=== PATIENT | male | born 1945 | race Caucasian/White ===

== ENCOUNTER 2017-05-15 14:30 | Day surgery (SDC) | payer OTHER ==
[~2017-05-15] VITALS: Ht 177.8 cm; Wt 85.4 kg
[2017-05-15] MEDS ORDERED: POVIDONE IODINE 5% (ANTISEPSIS KIT) 4 APPLICATIONS EACH NARE PRN (15:00)
[2017-05-15] MEDS ORDERED: CHLORHEXIDINE GLUCONATE 2 % 1 PACK (2 CLOTHS) TOPICAL PRN (15:00)
[2017-05-15] MEDS ORDERED: SODIUM CHLORID 0.9% 500 ML IV PRN (15:00)
[2017-05-15] MEDS ORDERED: METOPROLOL TARTRATE 25 MG TAB PO PRN (15:00)
[2017-05-15] MEDS ORDERED: LORazepam 1 MG TAB SL SCH (15:00)
[2017-05-15] MEDS ORDERED: SODIUM CHLORID 0.9% 500 ML INJ 500 ML IV SCH (15:00)
[2017-05-15] MEDS ORDERED: LACTATED RINGER'S 1000 ML IV PRN (15:00)
[2017-05-15] MEDS ORDERED: INSULIN HUMAN REGULAR 1,000 UNITS/10 ML VIAL SQ PRN (15:00)
[2017-05-15] MEDS ORDERED: APIX5TAB PO (15:11)
[2017-05-15] MEDS ORDERED: MULT-65 PO (15:11)
[2017-05-15] MEDS ORDERED: MELA5 PO (15:11)
[2017-05-15] MEDS ORDERED: VENTAER INH (15:11)
[2017-05-15] MEDS ORDERED: UMEC1AER INH (15:11)
[2017-05-15] MEDS ORDERED: HEPARIN-D5W 25,000 U/250 ML 250 ML ONE (17:12)
[2017-05-15] MEDS ORDERED: PROTAMINE SULFATE 50 MG/5 ML VIAL ONE (17:13)
[2017-05-15] MEDS ORDERED: LEVOFLOXACIN 500 MG PREMIX INJ 100 ML IV ONE (17:13)
[2017-05-15] MEDS ORDERED: FUROSEMIDE 40 MG/4 ML VIAL ONE (17:13)
[2017-05-15] MEDS ORDERED: HEPARIN SODIUM - IV 10,000 UNITS/10 ML VIAL ONE (17:14)
[2017-05-15 17:40] LABS: AUTOMATED NEUTROPHIL # 5.4 TH/MM3 (1.8-7.7); BASOPHIL # 0.1 TH/MM3 (0-0.2); BASOPHIL % 0.7 % (0.0-2.0); EOSINOPHIL # 0.4 TH/MM3 (0-0.4); EOSINOPHIL % 4.9 % (0.0-4.0); HEMATOCRIT 41.2 % (39.0-51.0); HEMOGLOBIN 14.5 GM/DL (13.0-17.0); LYMPH % 23.1 % (9.0-44.0); MEAN CELL VOLUME 95.2 FL (80.0-100.0); MEAN CORPUSCULAR HEMOGLOBIN 33.6 PG (27.0-34.0); MEAN CORPUSCULAR HGB CONC 35.2 % (32.0-36.0); MEAN PLATELET VOLUME 7.8 FL (7.0-11.0); MONO % 9.6 % (0.0-8.0); MONOCYTE # 0.8 TH/MM3 (0-0.9); NEUT % 61.7 % (16.0-70.0); PLATELET COUNT 284 TH/MM3 (150-450); RED BLOOD COUNT 4.32 MIL/MM3 (4.50-5.90); RED CELL DISTRIBUTION WIDTH 15.1 % (11.6-17.2); WHITE BLOOD COUNT 8.8 TH/MM3 (4.0-11.0)
[2017-05-15 17:50] LABS: PROTHROMBIN TIME - PATIENT 10.2 SEC (9.8-11.6)
[2017-05-15 18:02] LABS: BICARBONATE 25.7 MEQ/L (21.0-32.0); CALCIUM 8.6 MG/DL (8.5-10.1); CREATININE 1.01 MG/DL (0.60-1.30)
[2017-05-15] MEDS ORDERED: oxyCODONE/ACETAMINOPHEN 5 MG/325 MG TAB PO PRN ×2 (20:30)
[2017-05-15] MEDS ORDERED: BACITRACIN OINT 0.9 GM PKT TOP ONE (20:30)
[2017-05-15] MEDS ORDERED: ATROPINE SULFATE 1 MG/ML VIAL IV PUSH PRN (20:30)
[2017-05-15] MEDS ORDERED: METOCLOPRAMIDE HCL 10 MG/2 ML VIAL IV PUSH PRN (20:30)
[2017-05-15] MEDS ORDERED: SODIUM CHLOR 0.9% 250 ML INJ 250 ML IV PRN (20:30)
[2017-05-15] MEDS ORDERED: LORazepam 2 MG/ML VIAL IV PUSH PRN (20:30)
[2017-05-15] MEDS ORDERED: LIDOCAINE HCL 1% 20 ML VIAL INFIL PRN (20:30)
[2017-05-15] MEDS ORDERED: ONDANSETRON HCL 4 MG/2 ML VIAL IV PUSH PRN (20:30)
--- NOTE | 2017-05-15 20:40 | CATHPROC ---
Patient Name: TRACI PUENTES Study #: [id number] Initial MD: Susan Estrada Date of : 1945 Study Date: 05/15/2017 Cardiac Catheterization Report 05/15/2017 8:39:53 PM Financial #: [id number] 1 of 9 Patient Name: TRACI PUENTES Study #: [id number] Initial MD: Susan Estrada Date of : 1945 Study Date: 05/15/2017 Entire Case Report Patient Information Patient Name TRACI PUENTES Date of 1945 Age 72 years Financial # [id number] Gender M AlternateID Lab Number 2 Room Number DC09 Height (in) 70.0 Height (cm) 177.8 BSA 2.03 Weight (lbs) 187.9 Weight (kg) 85.4 Patient Address/Phone Number Home Address [facility] Home Phone Number [address] [facility] [address] Study Information Study Number Admission Scheduled Start Study Start [id number] May 15 2017 2:30PM 05/15/2017 May 15 2017 5:24PM [facility] Cardiac Catheterization Admit Source Facility Department Other [facility] Repair Technician Physician and Clinical Staff Initial Susan Medellin Returns Supervisor Celia De La Vega,RT(R) TECH2 Other Anesthesia, PROGRAM DIRECTOR Recorder Aria Monterroso,RN Scrub Deric Lange,RT(R) Procedures Performed Procedure Location (Site) Vessel Name Cardioversion ICE CATHETER INSERT RA Atruim RF Ablation LT. ATRIUM LT. [facility] 05/15/2017 8:39:53 PM Financial #: [id number] 2 of 9 Patient Name: TRACI PUENTES Study #: [id number] Initial MD: Susan Estrada Date of : 1945 Study Date: 05/15/2017 Equipment Time Behavioral Sciences Department Chair Description Size Mfg Part Number Used/Scraped NEEDLE, TRANSSEPTAL NRG 98 [id number] 17:26 [facility] Used C1 *[id number] [employer]/ EP [id number] 17:26 KIT, TRANSDUCER / AFIB Used PACER *[id number] CATHETER, TACTICATH ABLAT BUNDLE 17:26 [facility] Used 65 BUNDLE *[id number]- BUNDLE 36537-OPMCER CATHETER, FR7 OPTIMA SPIRAL 17:26 [facility] FR7 *[id number]- Used BUNDLE BUNDLE [id number] 17:26 [employer] CATHETER, JSN, QUAD BUNDLE FR 5 *[id number]- Used BUNDLE [id number] 17:26 [employer] CATHETER, JSN, QUAD BUNDLE FR 5 *[id number]- Used BUNDLE 10970-IOYWBF SET, COOL POINT TUBING 17:26 [employer] *[id number]- Used BUNDLE BUNDLE SHEATH, FR8.5 STEERABLE SM 17:26 [employer] 71CM [id number] Used 71CM BUNDLE COVER, TRANSDUCER CABLE 612-113 17:26 [employer] Used ACUNAV *[id number] 17:26 CORDIS/PACER SHEATH, FR10 PLACIDO 11CM FR 10 Used *[id number] 17:26 CORDIS/PACER SHEATH, FR9 PLACIDO 11CM FR 9 [id number] Used [id number] 17:26 [employer] INDUSTRIES PACK, CCL CUSTOM * Used *[id number] 17:26 [employer] PACER ZHAO, LIMB * 2530 *[id number] Used [id number] 17:26 [employer] MEDICAL SHEATH, FR4.5 PRELUDE 11CM FR 4.5 Used [id number] 17:26 NAMIC TUBING, HIGH PRESSURE 48" 48" Used *[id number] 17:26 NAMIC TUBING, HIGH PRESSURE 48" 48" Used *[id number] 17:26 [employer] BLANKET,WARM AIR CCL * Used *[id number] 17:26 [facility] MEDICAL ELECTRODE KIT, HALLEY X SURFACE * Used *[id number] 17:26 [facility] MEDICAL SHEATH, EPS, FR6 FAST CATH FR 6 Used *[id number] 17:26 [facility] MEDICAL SHEATH, EPS, FR7 FAST CATH FR 7 [id number] Used [id number] 17:26 [facility] MEDICAL SHEATH, EPS, FR8 FAST CATH FR 8 Used *[id number] CATHETER, ACUNAV FR10 ICE [id number] 18:36 MARGARITA FR 10 Used (MARGARITA) *[id number] [facility] PAD, ELECTROSURGICAL 17:26 * [id number] *[id number] Used SURGICAL GROUNDING (BLUE) 05/15/2017 8:39:53 PM Financial #: [id number] 3 of 9 Patient Name: TRACI PUENTES Study #: [id number] Initial MD: Susan Estrada Date of : 1945 Study Date: 05/15/2017 Insurance Information Insurance Payor Private Health Insurance Third Green Party Third Green Party Number C - POS [facility] History: Allergies Allergy Reaction SPLENDA History: Risk Factors Family History of Hypertension Dyslipidemia Previous CT Previous Heart Failure Premature CAD Yes Yes Yes No No Prior Valve Prior PCI Prior CABG Surgery No No No Cerebrovascular Peripheral Artery Chronic Lung On Dialysis Diabetes Disease Disease Disease No No No No No Medication Medication Total Dose (Bolus/Oral) Medication Total Dosage/Unit 1% XYLOCAINE 40 mL HEPARIN 06655 units PROTAMINE 40 mg 05/15/2017 8:39:53 PM Financial #: [id number] 4 of 9 Patient Name: TRACI PUENTES Study #: [id number] Initial MD: Susan Estrada Date of : 1945 Study Date: 05/15/2017 Medications (Bolus/Oral) Medication Time Given Dosage/Unit Administered By Reason 1% XYLOCAINE 05/15/2017 6:26:44 PM 20 mL Susan Estrada 20 mL 1% XYLOCAINE given in lab by Susan Estrada in Left Groin via Subcutaneous. 1% XYLOCAINE 05/15/2017 6:30:05 PM 20 mL Susan Estrada 20 mL 1% XYLOCAINE given in lab by Susan Estrada in Right Groin via Subcutaneous. HEPARIN 05/15/2017 6:37:22 PM 59339 units Anesthesia, PROGRAM DIRECTOR 58632 units HEPARIN given in lab by Anesthesia, PROGRAM DIRECTOR via Peripheral IV. Ordered by Susan Estrada. HEPARIN 05/15/2017 6:52:47 PM 3000 units Anesthesia, PROGRAM DIRECTOR 3000 units HEPARIN given in lab by Anesthesia, PROGRAM DIRECTOR via Peripheral IV. Ordered by Susan Estrada. HEPARIN 05/15/2017 7:06:36 PM 2000 units Anesthesia, PROGRAM DIRECTOR 2000 units HEPARIN given in lab by Anesthesia, PROGRAM DIRECTOR via Peripheral IV. Ordered by Susan Estrada. PROTAMINE 05/15/2017 8:23:40 PM 40 mg AnesthesiaONI 40 mg PROTAMINE given in lab by ONI Ferris. Ordered by Susan Estrada. Medication (Drip) Medication Time Given Dosage/Unit Concentration/Unit Diluent (ml) Solution ISUPREL 05/15/2017 8:01:47 PM 10 mcg/min 1 mg 250 NaCl .9 10 mcg/min ISUPREL given in lab by NOI Ferris via Peripheral IV. Pump/Drip Flow = 150 ml/hr usi ng NaCl .9 with a concentration of 1 mg in 250 ml. Ordered by Susan Estrada. 05/15/2017 8:39:53 PM Financial #: [id number] 5 of 9 Patient Name: TRACI PUENTES Study #: [id number] Initial MD: Susan Estrada Date of : 1945 Study Date: 05/15/2017 Initial Case Assessment Final Case Assessment Cardiovascular HR Rhythm NIBP Chest Pain 88 SR 122/62 0 Edema Present Skin color Skin None Normal Warm Dry Circulatory - Right Pulses Dorsalis Pedis 1 Scale (0,1,2,3,4,d) Circulatory - Left Pulses Dorsalis Pedis 1 Scale (0,1,2,3,4,d) Neurological State Oriented to time-place- Alert Moves all extremities person Respiration - General Respiration Rate SpO2 (%) O2 (lpm) (B/min) 18 100 4 Chronological Log Time Study Chronological Log 17:15:00 Patient arrived via Bed. 17:15:00 Patient Name, D.O.B, / Armband Verified By R.N. 17:15:10 Verbal Stimulation=2 Physical Stimulation=2 Airway=2 Respiration=2 TOTAL=8. (0=absent, 1=li mited, 2=present) 17:15:15 Anesthesia at bedside. Assumes care of patient. SEE RECORDS FOR MEDS AD VITALS DURING PROCE DURE 17:20:00 Patient has been NPO for More than 6Hrs. 17:21:00 Skin Breakdown- NONE PER PATIENT 17:34:51 Patient Warmer Placed on the Table. 17:34:53 Disposable Defibrillator Pads Placed On Patient. 17:34:54 Saurabh Prominences Protected 17:34:55 IV Warmer Connected To Patient. 17:34:55 A # 20 IV was noted in the Antecubital (left). Grade = 0 05/15/2017 8:39:53 PM Financial #: [id number] 6 of 9 Patient Name: TRACI PUENTES Study #: [id number] Initial MD: Susan Estrada Date of : 1945 Study Date: 05/15/2017 17:35:03 A # 20 IV was noted in the Antecubital (right). Grade = 0 17:35:11 History and physical on the chart or being dictated. 17:35:14 Assessment: Initial Case 17:35:15 Table restraints applied according to hospital policy 17:35:17 Bilateral groins prepped with 2% chlorhexidine, and draped after a 3 minute waiting time. 17:35:21 MD paged 17:35:21 MD responded 17:45:00 DR. ESTRADA PRESENT AWAITING ANESTHESIA FOR INTUBATION. LABS STILL PENDING LAB CONTACTED 18:14:57 PATIENT INTUBATED KP AND ANASTHESIOLOGIST PRESENT 18:15:35 S HESHER INSERTED 14F B[place]AG[place] WITH CLEAR YELLOW RETURN Time Out. Correct patient, procedure, procedure equipment, site and side verified with physicia n present. Time 18:22:43 concurred by MD, individual staff and PROGRAM DIRECTOR. Time Out #2 - Consents verified, patient in correct position, all results are labled and displa yed, safety precautions 18:22:45 taken, antibiotics administered. Time out concurred by MD, individual staff and PROGRAM DIRECTOR in procedu re 18:23:40 Case Start 18:23:50 JAMI IN PROGRESS 18:25:15 JAMI COMPLETE 18:26:44 20 mL 1% XYLOCAINE given in lab by Susan Estrada in Left Groin via Subcutaneous. 18:27:19 Vascular access was obtained in the Fem Vein (left). 18:27:23 Vascular access was obtained in the Fem Vein (left). 18:27:24 Vascular access was obtained in the Fem Vein (left). 18:27:24 Vascular access was obtained in the Fem Art (left). 18:28:13 A SHEATH, FR4.5 PRELUDE 11CM FR 4.5 was advanced into the Fem Art (left) using the Modified Seldinger technique. 18:30:05 20 mL 1% XYLOCAINE given in lab by Susan Estrada in Right Groin via Subcutaneous. 18:30:12 Vascular access was obtained in the Fem Vein (right). 18:30:13 A SHEATH, EPS, FR8 FAST CATH FR 8 was advanced into the Fem Vein (right) using the Modified Seldinger technique. A CATHETER, JSN, QUAD BUNDLE FR 5 was advanced vis Fem Vein (left) and placed in the CS. Placem ent was visually 18:32:55 confirmed under fluoroscopy. A CATHETER, JSN, QUAD BUNDLE FR 5 was advanced vis Fem Vein (left) and placed in the HIS. Place ment was 18:33:04 visually confirmed under fluoroscopy. 18:35:30 CATHETER, ACUNAV FR10 ICE (TPACK) FR 10 Was Postioned. A SHEATH, FR8.5 STEERABLE SM 71CM BUNDLE 71CM was exchanged in the Fem Vein (right). This was n ecessary in 18:35:46 order to accomodate a larger catheter. 18:35:55 BAYLIS NEEDLE INSERTED 18:37:13 A eps was advanced to the right atrium and passed through the septal wall to the left atriu m. 18:37:16 BAYLIS REMOVED 18:37:22 17066 units HEPARIN given in lab by Anesthesia, PROGRAM DIRECTOR via Peripheral IV. Ordered by Maryellen Estrada. A CATHETER, FR7 OPTIMA SPIRAL BUNDLE FR7 was advanced vis Fem Vein (right) and placed in the LA . Placement 18:38:56 was visually confirmed under fluoroscopy. 18:39:06 MAPPING IN PROGRESS A CATHETER, TACTICATH ABLAT 65 BUNDLE was advanced vis Fem Vein (right) and placed in the LA. P lacement was 18:51:48 visually confirmed under fluoroscopy. 05/15/2017 8:39:53 PM Financial #: [id number] 7 of 9 Patient Name: TRACI PUENTES Study #: [id number] Initial MD: Susan Estrada Date of : 1945 Study Date: 05/15/2017 18:51:56 RF Ablation of the LT. ATRIUM with a CATHETER, TACTICATH ABLAT 65 BUNDLE. 18:52:06 ABLATION IN PROGRESS 18:52:41 ACT (Normal Range 90-180) = 308 18:52:47 3000 units HEPARIN given in lab by Anesthesia, PROGRAM DIRECTOR via Peripheral IV. Ordered by Maryellen Estrada. 19:00:50 Activated Clotting Time Drawn 19:06:07 ACT (Normal Range 90-180) = 335 19:06:36 2000 units HEPARIN given in lab by ONI Ferris via Peripheral IV. Ordered by Maryellen Estrada. 19:13:01 Activated Clotting Time Drawn 19:18:43 ACT (Normal Range 90-180) = 357 19:35:20 ABLATION STILL IN PROGRESS 19:42:35 Activated Clotting Time Drawn 19:48:50 ACT (Normal Range 90-180) = 351 19:59:53 ECG rhythm of AF noted. Patient cardioverted at 200 joules. Success SYNC 10 mcg/min ISUPREL given in lab by ONI Ferris via Peripheral IV. Pump/Drip Flow = 150 ml /hr using NaCl .9 20:01:47 with a concentration of 1 mg in 250 ml. Ordered by Susan Estrada. 20:12:52 DC ISUPREL A SHEATH, FR9 PLACIDO 11CM FR 9 was exchanged in the Fem Vein (right). This was necessary in or dasia to minimize 20:13:58 site leakage. 20:14:16 Catheter(s) removed without difficulty Assessment: Final Case, HR=88 BPM, Rhythm=SR, PGUX=484/62 mmhg, Chest Pain=0, Edema=None, Kulm r=Normal, Skin = Warm, Dry Right Pulses: Pelon Ped=1 20:14:19 Left Pulses: Pelon Ped=1 Neurological: State=Alert, Ox3, TONEY Respiration: Resp=18 B/min, VwA0=197 %, O2=4 lpm 20:15:02 Case End 20:23:19 Case complication noted. 20:23:20 Cine recording checked. 20:23:21 Bedside Report will be given. 20:23:26 PACU called. Spoke to APPLE 20:23:40 40 mg PROTAMINE given in lab by AnesthesiaONI. Ordered by Susan Estrada. 20:39:31 ACT (Normal Range 90-180) = 143 20:39:47 Patient moved to stretcher End Study - Contrast Media Used In Study Contrast Total Opened (mL) Total Used (mL) Total Wasted (mL) Unspecified 0 0 0 05/15/2017 8:39:53 PM Financial #: [id number] Patient Name: TRACI PUENTES Study #: [id number] Initial MD: Susan Estrada Date of : 1945 Study Date: 05/15/2017 End Study - Radiation Exposure Fluoro Time (minutes) 2.5 End Study - Patient Disposition Complications Transferred To Interventional Outcome No Telemetry Bed successful 05/15/2017 8:39:53 PM Financial #: [id number]
[2017-05-15] MEDS ORDERED: DO NOT ADM ANY ANTICOAGULANT DRUGS PRN (20:45)
[2017-05-15] MEDS ORDERED: MELATONIN 5 MG TAB PO SCH (21:00)
[2017-05-15] MEDS: APIXABAN 5 MG TABLET PO SCH (21:00)
[2017-05-15] MEDS ORDERED: PILL SPLITTER OTHER PRN (21:00)
[2017-05-16 05:59] LABS: INTERNATIONAL NORMALIZED RATIO 1.1 RATIO; PROTHROMBIN TIME - PATIENT 10.7 SEC (9.8-11.6)
[2017-05-16 06:48] VITALS: BP 157/90; PULSE 86; RESP 16; TEMP 98.8; O2SAT 96
[2017-05-16 07:00] VITALS: PULSE 83
--- NOTE | 2017-05-16 07:56 | PD.CARD.PN ---
Subjective Subjective Remarks Feels okay. Objective Medications Current Medications Medications (Trade) Dose Ordered Sig/Shukri Route Start Time Stop Time Status Last Admin Sodium Chloride 500 ml @ 30 mls/hr [id number] IV 05/15/17 15:00 (Ativan) 1 mg JIG MILL OPERATOR SL 05/15/17 15:00 05/18/17 14:59 Lactated Ringer's 1,000 ml @ 30 mls/hr Q24H PRN IV 05/15/17 15:00 05/18/17 14:59 Sodium Chloride 500 ml @ 30 mls/hr [id number] PRN IV 05/15/17 15:00 05/18/17 14:59 (Lopressor) 25 mg JIG MILL OPERATOR PRN PO 05/15/17 15:00 05/18/17 14:59 (Betadine 5% Antisepsis Kit) 1 applic JIG MILL OPERATOR PRN EACH NARE 05/15/17 15:00 05/18/17 14:59 (Chlorhexidine 2% Cloth) 3 pack JIG MILL OPERATOR PRN TOPICAL 05/15/17 15:00 05/18/17 14:59 (NovoLIN R INJ) See Protocol Table ... JIG MILL OPERATOR PRN SQ 05/15/17 15:00 05/18/17 14:59 (Percocet 5-325 Mg) 1 tab Q4H PRN PO 05/15/17 20:30 (Percocet 5-325 Mg) 2 tab Q4H PRN PO 05/15/17 20:30 (Ativan Inj) 0.5 mg UNSCH PRN IV PUSH 05/15/17 20:30 05/16/17 20:29 (Atropine Inj) 0.5 mg UNSCH PRN IV PUSH 05/15/17 20:30 Sodium Chloride 250 ml @ 500 mls/hr ONCE PRN IV 05/15/17 20:30 05/16/17 20:29 (Reglan Inj) 10 mg Q4H PRN IV PUSH 05/15/17 20:30 (Zofran Inj) 4 mg Q4H PRN IV PUSH 05/15/17 20:30 (Xylocaine 1% Inj) 10 ml UNSCH PRN INFIL 05/15/17 20:30 05/16/17 20:29 (Eliquis) 5 mg BID PO 05/15/17 21:00 05/15/17 21:00 (Melatonin) 2.5 mg HS PO 05/15/17 21:00 (Theragran) 1 tab DAILY PO 05/16/17 09:00 (Pill Splitter) 1 ea UNSCH PRN OTHER 05/15/17 21:00 Miscellaneous Information ALL NURSING DEPARTME... UNSCH PRN .XX 05/15/17 20:45 05/16/17 20:44 Vital Signs / I&O Vital Signs Date Time Temp Pulse Resp B/P (MAP) Pulse Ox O2 Delivery O2 Flow Rate FiO2 05/16/17 06:48 98.8 86 16 157/90 (112) 96 05/16/17 04:15 97.8 86 16 155/88 (110) 97 Room Air 05/16/17 02:00 87 16 95 Room Air 05/16/17 01:30 87 19 96 Room Air 05/16/17 01:00 88 17 137/82 (100) 96 Room Air 05/16/17 00:00 93 15 158/98 (118) 98 Room Air 05/15/17 22:30 82 15 147/78 (101) 100 Nasal Cannula 2 05/15/17 22:00 79 15 136/67 (90) 100 Nasal Cannula 2 05/15/17 21:30 81 15 132/82 (99) 100 Nasal Cannula 2 05/15/17 21:15 81 15 142/86 (104) 100 Nasal Cannula 2 05/15/17 21:00 80 15 128/84 (99) 100 Nasal Cannula 2 05/15/17 20:50 79 15 132/81 (98) 100 Nasal Cannula 2 05/15/17 20:43 97.5 81 15 135/83 (100) 100 Nasal Cannula 2 I/O 05/15/17 05/15/17 05/15/17 05/16/17 05/16/17 05/16/17 07:00 15:00 23:00 07:00 15:00 23:00 Intake Total 462 ml Output Total 750 ml Balance -288 ml Intake Oral 462 ml Output Urine Total 750 ml Physical Exam GENERAL: Well-nourished, well-developed patient. SKIN: Warm and dry. Groin site soft without bruising or bleeding. HEAD: Normocephalic. EYES: No scleral icterus. No injection or drainage. NECK: Supple, trachea midline. No JVD or lymphadenopathy. CARDIOVASCULAR: Regular rate and rhythm without murmurs, gallops, or rubs. RESPIRATORY: Breath sounds equal bilaterally. No accessory muscle use. GASTROINTESTINAL: Abdomen soft, non-tender, nondistended. EXTREMITIES: No cyanosis, or edema. NEUROLOGICAL: Awake, alert, and oriented x 3. Non-focal. Laboratory Laboratory Tests Test 05/15/17 15:05 05/16/17 05:25 White Blood Count 8.8 TH/MM3 Red Blood Count 4.32 MIL/MM3 Hemoglobin 14.5 GM/DL Hematocrit 41.2 % Mean Corpuscular Volume 95.2 FL Mean Corpuscular Hemoglobin 33.6 PG Mean Corpuscular Hemoglobin Concent 35.2 % Red Cell Distribution Width 15.1 % Platelet Count 284 TH/MM3 Mean Platelet Volume 7.8 FL Neutrophils (%) (Auto) 61.7 % Lymphocytes (%) (Auto) 23.1 % Monocytes (%) (Auto) 9.6 % Eosinophils (%) (Auto) 4.9 % Basophils (%) (Auto) 0.7 % Neutrophils # (Auto) 5.4 TH/MM3 Lymphocytes # (Auto) 2.0 TH/MM3 Monocytes # (Auto) 0.8 TH/MM3 Eosinophils # (Auto) 0.4 TH/MM3 Basophils # (Auto) 0.1 TH/MM3 CBC Comment DIFF FINAL Differential Comment Prothrombin Time 10.2 SEC 10.7 SEC Prothromb Time International Ratio 1.0 RATIO 1.1 RATIO Activated Partial Thromboplast Time 26.2 SEC 24.8 SEC Blood Urea Nitrogen 15 MG/DL Creatinine 1.01 MG/DL Random Glucose 72 MG/DL Calcium Level 8.6 MG/DL Sodium Level 137 MEQ/L Potassium Level 4.0 MEQ/L Chloride Level 103 MEQ/L Carbon Dioxide Level 25.7 MEQ/L Anion Gap 8 MEQ/L Estimat Glomerular Filtration Rate 73 ML/MIN Assessment and Plan Problem List: (1) Atrial fibrillation ICD Codes: I48.91 - Unspecified atrial fibrillation Plan: Sinus rhythm on telemetry status post ablation. (2) S/P ablation of atrial fibrillation ICD Codes: Z98.890 - Other specified postprocedural states; Z86.79 - Personal history of other diseases of the circulatory system Plan: Continue Eliquis, discharge home, follow-up with Dr. Gould in 3 weeks per my discussion with him. Gail Villarreal May 16, 2017 07:56
[2017-05-16 08:00] VITALS: BP 145/87; PULSE 70; PULSE 87; RESP 18; TEMP 98.6; O2SAT 97
[2017-05-16 09:00] VITALS: PULSE 62
[2017-05-16] MEDS ORDERED: MULTIVITAMIN TAB PO SCH (09:00)
[2017-05-16] MEDS ORDERED: UMECLIDINIUM 62.5 MCG/VILANTEROL 25 MCG INHALER INH SCH (09:00)
[2017-05-16] MEDS: APIXABAN 5 MG TABLET PO SCH (09:28)
--- NOTE | 2017-05-16 14:40 | EKG ---
Date Performed: 05/15/2017 Time Performed: 15:20:30 PTAGE: 72 years EKG: Atrial flutter. Left anterior fascicular block ST junctional depression is nonspecific Abno rmal ECG NO PREVIOUS TRACING DOCTOR: Jesus Cox Interpretating Date/Time 05/16/2017 14:37:47
--- NOTE | 2017-05-16 15:47 | EKG ---
Date Performed: 05/15/2017 Time Performed: 21:34:08 PTAGE: 72 years EKG: Sinus rhythm MARKED LEFT AXIS DEVIATION ABNORMAL ECG Since the previous tracing, no significant change noted NO PREVIOUS TRACING DOCTOR: Jesus Cox Interpretating Date/Time 05/16/2017 15:42:38
== END 2017-05-16 10:49 | disposition home or self-care (01) ==
LOC: HDIC 14:30 → HDOC 14:30 → HOCB 18:09 → HDIC 18:37 → HPAC 21:48 → HCIS 05-16 06:43 → HDOC 05-16 10:49
PROVIDERS: ATTEND Internal Medicine Interventional Cardiology
DX: I48.91 Unspecified atrial fibrillation (principal); J44.9 Chronic obstructive pulmonary disease, unspecified; Z79.01 Long term (current) use of anticoagulants
CPT/HCPCS: 00537; 80048; 85002; 85025; 85610; 85730; 86850; 86900; 86901; 92960; 93005; 93312; 93320; 93325; 93613; 93623; 93656; 93662; C1730; C1731; C1732; C1759; C1766; C2630; J1644; J1940; J1956; J2720; J3010